=== PATIENT | female | born 2000 | race Caucasian/White ===

== ENCOUNTER 2022-05-25 16:08 | Inpatient (IN) ==
[2022-05-25 17:03] LABS: ABS Lymphocytes 1.8 10^3/ul (1.0-4.8); ABS Monocytes 0.5 10^3/ul (0-0.8); Eosinophil % 0.1 %; Hematocrit 38 % (35-47); Hemoglobin 12.2 g/dL (12.0-16.0); Lymphocyte % 25.1 %; Mean Corpuscular HGB Conc 32 g/dL (31-36); Mean Corpuscular Hemoglobin 30 pg (27-31); Mean Corpuscular Volume 91 fL (80-97); Mean Platelet Volume 7.8 fL (7.4-10.4); Platelet Count 342 10^3/uL (150-450); Red Blood Count 4.14 10^6 /uL (3.70-4.87); Red Cell Distribution Width 13 % (10-15); White Blood Count 7.4 10^3/uL (3.5-10.8)
[2022-05-25 17:23] LABS: Urine Benzodiazepine Screen None Detected (None Detect); Urine Cannabinoids Screen Presumptive Positive (None Detect); Urine Opiates Screen None Detected (None Detect)
[2022-05-25 17:55] LABS: ALT 42 U/L (7-52); AST 21 U/L (13-39); Acetaminophen < 15 mcg/mL; Albumin 4.8 g/dL (3.2-5.2); Albumin/Globulin Ratio 1.9 (1-3); Alcohol, S < 13 mg/dL (<13); Alkaline Phosphatase 72 U/L (35-149); Anion Gap 7 mmol/L (2-11); Blood Urea Nitrogen 14 mg/dL (6-24); CO2 Carbon Dioxide 28 mmol/L (22-32); Calcium 10.1 mg/dL (8.6-10.3); Chloride 102 mmol/L (101-111); Creatinine, Serum 0.84 mg/dL (0.51-0.95); Globulin 2.5 g/dL (2-4); Glucose 108 mg/dL (70-100); Potassium 3.8 mmol/L (3.5-5.0); Salicylate < 2.50 mg/dL (<30); Sodium 137 mmol/L (135-145); Total Protein 7.3 g/dL (6.4-8.9); eGFR CKD-EPI 101.3 (>60)
[2022-05-25 17:57] LABS: TSH Ultra Thyroid Stim Horm 2.09 mcIU/mL (0.34-5.60)
[2022-05-25 21:50] LABS: HCG Pregnancy < 0.60 mIU/mL
[2022-05-25 23:28] LABS: Lithium 0.32 mmol/L (0.6-1.2)
[2022-05-26] MEDS ORDERED: LORazepam 2 mg VIAL 1 ml ONE (03:13)
[2022-05-26] MEDS ORDERED: Haloperidol 5 mg/ml SDV IV/IM 5 MG/ML AMP ONE (03:13)
[2022-05-26] MEDS ORDERED: LORazepam 2 mg VIAL 1 ml IM ONE ×2 (03:18)
[2022-05-26] MEDS ORDERED: Haloperidol 5 mg/ml SDV IV/IM 5 MG/ML AMP IM ONE (03:18)
[2022-05-26] MEDS ORDERED: Al Hydrox/Mg Hydrox/Simet LIQ 30 ML UDC PO PRN (12:45)
[2022-05-28 08:31] LABS: HDL Cholesterol 61.3 mg/dL
[2022-05-28] MEDS: Venlafaxine XR 75 mg PO SCH ×2 (10:07→10:23)
[2022-05-29] MEDS: Venlafaxine XR 75 mg PO SCH (10:35)
[2022-05-30] MEDS: Lithium Carbonate ER 450mg TAB PO SCH (22:47)
[2022-05-31] MEDS: Lithium Carbonate ER 450mg TAB PO SCH ×2 (09:27→20:11)
[2022-06-01] MEDS: Lithium Carbonate ER 450mg TAB PO SCH ×2 (08:47→21:15)
[2022-06-01] MEDS ORDERED: Ondansetron ODT 4 mg TAB 4 MG TAB ONE (10:31)
[2022-06-02] MEDS: Lithium Carbonate ER 450mg TAB PO SCH ×2 (09:15→19:15)
[2022-06-02] MEDS ORDERED: Paliperidone SUSTENNA 234 MG/1.5 ML IM ONE (12:18)
[2022-06-03] MEDS: Lithium Carbonate ER 450mg TAB PO SCH ×2 (09:01→21:05)
[2022-06-04] MEDS: Lithium Carbonate ER 450mg TAB PO SCH ×2 (08:19→20:07)
[2022-06-05] MEDS ORDERED: Paliperidone SUSTENNA 156 MG/1 ML IM ONE (09:00)
[2022-06-05] MEDS: Lithium Carbonate ER 450mg TAB PO SCH ×2 (09:56→20:33)
[2022-06-06] MEDS: Lithium Carbonate ER 450mg TAB PO SCH (08:50)
[2022-06-06] MEDS: Lithium Carb ER 300 mg TAB(NF) PO SCH (20:48)
[2022-06-07] MEDS: Lithium Carb ER 300 mg TAB(NF) PO SCH ×2 (10:37→20:04)
[2022-06-08] MEDS: Lithium Carb ER 300 mg TAB(NF) PO SCH ×2 (09:15→21:45)
[2022-06-09] MEDS: Lithium Carb ER 300 mg TAB(NF) PO SCH ×2 (08:30→21:23)
[2022-06-10] MEDS: Lithium Carb ER 300 mg TAB(NF) PO SCH ×2 (08:11→21:00)
[2022-06-11] MEDS: Lithium Carb ER 300 mg TAB(NF) PO SCH ×2 (08:07→20:26)
[2022-06-12] MEDS: Lithium Carb ER 300 mg TAB(NF) PO SCH ×2 (08:16→21:12)
[2022-06-12 08:47] LABS: Albumin 4.5 g/dL (3.2-5.2); Calcium 9.6 mg/dL (8.6-10.3); Creatinine, Serum 0.79 mg/dL (0.51-0.95); Globulin 2.3 g/dL (2-4); Lithium 0.74 mmol/L (0.6-1.2); Potassium 4.3 mmol/L (3.5-5.0); Total Bilirubin 0.8 mg/dL (0.2-1.0); Total Protein 6.8 g/dL (6.4-8.9); eGFR CKD-EPI 109.1 (>60)
[2022-06-13] MEDS: Lithium Carb ER 300 mg TAB(NF) PO SCH ×2 (08:16→19:57)
[2022-06-14] MEDS: Lithium Carb ER 300 mg TAB(NF) PO SCH ×2 (08:06→21:17)
[2022-06-15] MEDS: Lithium Carb ER 300 mg TAB(NF) PO SCH ×2 (08:03→20:05)
[2022-06-16 08:15] VITALS: BP 107/68
[2022-06-16] MEDS: Lithium Carb ER 300 mg TAB(NF) PO SCH (08:22)
[2022-07-03] MEDS ORDERED: Paliperidone SUSTENNA 156 MG/1 ML IM ONE (09:00)
== END 2022-06-16 11:45 | disposition home or self-care (01) | DRG 885 ==
LOC: ED 16:08 → BSU 05-26 05:08 → EDHOLD 05-26 12:45 → BSU 05-26 15:09
PROVIDERS: ADMIT Psychiatry & Neurology Psychiatry; ATTEND Psychiatry & Neurology Psychiatry